=== PATIENT | male | born 1945 | race Caucasian/White ===

== ENCOUNTER → 2016-08-31 | Outpatient (CLI) | payer MEDICARE, OTHER ==
[~2016-08-31] MED LIST: ACTOS; ASPIRIN; ASPIRIN81 M2 PO; FLOMAX0.4 M1 PO; GLUCOPHAGE500 M1 PO; HAYZAAR; KCL PO; LASIX20 MG PO; LIPITOR; LIPITOR PO; LISINOPRIL; LOSARTAN POTAS100 MG PO; METOPROLOL TAR25 MG PO; TIAZAC; TOPROL XL; TYLENOL #3; ZESTRIL40 MG PO
--- NOTE | ~2016-08-31 | MR17 ---
[facility] A Service of [facility] RADIOLOGY TEXT RESULTS PATIENT: AV BELTRAN LOCATION: [facility] : 47 UNIT #: [id number] AGE: [address]: Tj Conte II, MD SEX: M ORDER DR: [id number] [address] [id number] MR#: [id number] Acc #: [id number] NAME: AV BELTRAN : 1945 SEX: M STUDY DATE/TIME: 08/31/2016 8:50 UNIT: [facility] ROOM: STUDY DESCRIPTION: MR Brain WWo Contrast Attending Physician: Tj Conte II., M.D. Referring Physician: Tj Conte II., M.D. Ordering Physician: Tj Conte II., M.D. Primary Care Physician: Anurag Thorne M.D. MRI CENTER REPORT This report is preliminary unless electronic signature is present. EXAM Brain MRI with and without contrast HISTORY Previous history of meningioma with surgery in 2013. Chronic seizures. TECHNIQUE Multiplanar imaging brain was performed with and without contrast. 20 mL of MultiHance was used. The study is compared to a previous examination dated 02/07/2016 FINDINGS On diffusion weighted images there is no evidence of abnormal restricted diffusion. The routine brain images show postoperative encephalomalacia in the right frontal area. This is unchanged from the previous exam. There is no evidence of residual or recurrent mass at the operative site. No abnormal enhancement is seen in this area post contrast. No new lesions are seen elsewhere the brain. The temporal lobes are asymmetric. There is relative atrophy of the right medulla and hippocampus compared to the left. This is unchanged from previous scan. There is also a small focus of bright T2 signal in the right amygdala likely representing small area of cystic or encephalomalacic change. 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 It measures approximately 7 mm in maximum diameter. No abnormal enhancement of the pituitary is seen post contrast. IMPRESSION 1. 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 2. Atrophy with no significant worsening since the previous exam. 3. Temporal lobe asymmetry with relative atrophy of the right hippocampus and amygdala compared to the left and a small focus of cystic change in the right amygdala likely representing STS. [facility] A Service of [facility] RADIOLOGY TEXT RESULTS PATIENT: AV BELTRAN LOCATION: [facility] : 47 UNIT #: [id number] AGE: [address]: Tj Conte II, MD SEX: M ORDER DR: encephalomalacia. This is unchanged from the previous exam. 4. 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 No new lesions are seen. Dictated by... Pablito Brewer M.D. THIS IS AN ELECTRONICALLY VERIFIED REPORT Pablito Brewer M.D. at 09/01/2016 5:04 PM ELVIE/crys TD: 09/01/2016 11:47 JOB #: [id number] MRI CENTER REPORT Page 1 of 1
[2016-08-31 09:46] LABS: POC - CREATININE 0.83 mg/dL (0.64-1.27); POC - GFR >60.0 mL/min (>60)
== END | disposition home or self-care (01) ==
LOC: SMRI 08:12
PROVIDERS: Psychiatry & Neurology Neurology
DX: G40.409 Other generalized epilepsy and epileptic syndromes, not intractable, without status epilepticus (principal); G96.9 Disorder of central nervous system, unspecified; G93.89 Other specified disorders of brain; G31.9 Degenerative disease of nervous system, unspecified; E23.6 Other disorders of pituitary gland
CPT/HCPCS: 70553; 82565; A9581